=== PATIENT | female | born 1955 | race Caucasian/White ===

== ENCOUNTER 2021-06-14 11:35 | Day surgery (SDC) | payer MEDICARE, MEDICAID ==
[2021-06-14] MEDS ORDERED: Xylocaine 1% Vial 30 ML PF IJ ONE (11:36)
[2021-06-14] MEDS ORDERED: Depo-Medrol 40 MG/ML IM ONE (11:36)
[2021-06-14] MEDS ORDERED: Sodium Chloride 0.9% 10 ML FLUSH Syringe IJ ONE (11:36)
[2021-06-14] MEDS ORDERED: Decadron 4 MG INJ IV ONE (11:36)
[2021-06-14] MEDS ORDERED: DIPRIVAN 200 MG/20 ML IV ONE (13:46)
[2021-06-14] MEDS ORDERED: Lactated Ringers 1,000 ML IV ONE (14:38)
--- NOTE | 2021-06-14 15:04 | XRAY ---
11 seconds fluoroscopy time in surgery for injection of the right piriformis.
--- NOTE | 2021-06-14 15:04 | XRAY ---
Indication: Right L4-S1 S1 transforaminal YANELY. Intraoperative fluoroscopy provided for 32 seconds. 3 digital spot image submitted for interpretation demonstrates posterior needle tips projecting over the expected right L4 and L5 nerve roots. Small amount of contrast injected for needle tip placement. Correlate with intraoperative findings/report. Incidental incompletely visualized 2 right SI joint screws.
--- NOTE | 2021-06-14 15:04 | XRAY ---
Indication: Right piriformis muscle injection. Intraoperative fluoroscopy provided for 11 seconds. Single digital spot image submitted for interpretation demonstrates posterior needle tip projecting over the expected right piriformis muscle. Small amount of contrast injected for needle tip placement. Correlate with intraoperative findings/report.
--- NOTE | 2021-06-14 15:14 | XRAY ---
32 seconds fluoroscopy time in surgery for L4-S1 transforaminal YANELY.
== END 2021-06-14 14:15 | disposition home or self-care (01) ==
LOC: SDC-PAIN 11:35
PROVIDERS: ATTEND Psychiatry & Neurology Pain Medicine
DX: M54.16 Radiculopathy, lumbar region (principal); M79.18 Myalgia, other site; I10 Essential (primary) hypertension; J44.9 Chronic obstructive pulmonary disease, unspecified; D64.9 Anemia, unspecified; E11.9 Type 2 diabetes mellitus without complications; I48.91 Unspecified atrial fibrillation; E03.9 Hypothyroidism, unspecified; Z79.01 Long term (current) use of anticoagulants; Z79.899 Other long term (current) drug therapy
CPT/HCPCS: 20552; 64483; 64484; 72020; 72100; 77002; 77003; 82947; J1030; J1100; J2001; J2704; Q9966

== ENCOUNTER 2021-07-12 07:23 | Day surgery (SDC) | payer MEDICARE ==
[2021-07-12] MEDS ORDERED: BUPIVACAINE 0.5% VIAL IJ ONE (07:24)
[2021-07-12] MEDS ORDERED: Depo-Medrol 40 MG/ML IM ONE (07:24)
[2021-07-12] MEDS ORDERED: Lactated Ringers 1,000 ML IV ONE (08:53)
[2021-07-12] MEDS ORDERED: DIPRIVAN 200 MG/20 ML IV ONE (08:55)
--- NOTE | 2021-07-12 10:19 | XRAY ---
Indication: Right SI joint injection. Intraoperative fluoroscopy provided for 10 seconds. 2 digital spot image submitted for interpretation demonstrates posterior needle tip projecting over the inferior right SI joint. Correlate with intraoperative findings/report. Incidental 2 orthopedic screws traverse the right SI joint.
--- NOTE | 2021-07-12 10:31 | XRAY ---
10 seconds fluoroscopy time in surgery for injection of the right SI joint.
== END 2021-07-12 09:24 | disposition home or self-care (01) ==
LOC: SDC-PAIN 07:23
PROVIDERS: ATTEND Psychiatry & Neurology Pain Medicine
DX: M46.1 Sacroiliitis, not elsewhere classified (principal); D64.9 Anemia, unspecified; I48.91 Unspecified atrial fibrillation; E11.9 Type 2 diabetes mellitus without complications; Z79.899 Other long term (current) drug therapy; Z79.01 Long term (current) use of anticoagulants
CPT/HCPCS: 27096; 72020; 77002; 82947; G0260; J1030; J2704

== ENCOUNTER 2021-08-30 07:25 | Day surgery (SDC) | payer MEDICARE ==
[2021-08-30] MEDS ORDERED: BUPIVACAINE 0.5% VIAL IJ ONE (07:26)
[2021-08-30] MEDS ORDERED: Depo-Medrol 40 MG/ML IM ONE (07:26)
[2021-08-30] MEDS ORDERED: Xylocaine 1% Vial 30 ML PF IJ ONE (07:26)
[2021-08-30] MEDS ORDERED: DIPRIVAN 200 MG/20 ML IV ONE (08:41)
--- NOTE | 2021-08-30 10:02 | XRAY ---
Indication: Right SI joint RFA. Intraoperative fluoroscopy provided for 46 seconds. 2 digital spot image submitted for interpretation demonstrates 4 posterior needle tip projecting over the right sacrum. Correlate with intraoperative findings/report. Incidental partially visualized 2 right SI fixation screws.
[2021-08-30] MEDS ORDERED: Lactated Ringers 1,000 ML IV ONE (10:14)
--- NOTE | 2021-08-30 10:30 | XRAY ---
46 seconds of fluoroscopy was used in surgery for a right SI joint RFA.
== END 2021-08-30 09:20 | disposition home or self-care (01) ==
LOC: SDC-PAIN 07:25
PROVIDERS: ATTEND Psychiatry & Neurology Pain Medicine
DX: M47.816 Spondylosis without myelopathy or radiculopathy, lumbar region (principal); I10 Essential (primary) hypertension; E11.9 Type 2 diabetes mellitus without complications; Z79.01 Long term (current) use of anticoagulants; E03.9 Hypothyroidism, unspecified; Z79.899 Other long term (current) drug therapy
CPT/HCPCS: 64625; 72202; 77002; 82947; J1030; J2001; J2704

== ENCOUNTER 2021-10-18 09:02 | Day surgery (SDC) | payer MEDICARE ==
[2021-10-18] MEDS ORDERED: Depo-Medrol 40 MG/ML IM ONE (09:03)
[2021-10-18] MEDS ORDERED: Sodium Chloride 0.9(Preservative Free) 10 ML IJ ONE (09:03)
[2021-10-18] MEDS ORDERED: Decadron 4 MG INJ IV ONE (09:03)
[2021-10-18] MEDS ORDERED: Xylocaine 1% Vial 30 ML PF IJ ONE (09:03)
[2021-10-18] MEDS ORDERED: DIPRIVAN 200 MG/20 ML IV ONE (11:44)
[2021-10-18] MEDS ORDERED: Lactated Ringers 1,000 ML IV ONE (12:45)
--- NOTE | 2021-10-18 12:53 | XRAY ---
Indication: Right L4-S1 transforaminal YANELY. Intraoperative fluoroscopy provided for 1 minute 20 seconds. 7 digital spot image submitted for interpretation demonstrates posterior needle tips projecting over the expected right L4 and L5 nerve roots. Small amount of contrast injected for needle tip placement. Correlate with intraoperative findings/report. Incidental incompletely visualized 2 right SI joint screws.
--- NOTE | 2021-10-18 12:55 | XRAY ---
Indication: Right piriformis muscle injection. Intraoperative fluoroscopy provided for 11 seconds. 2 digital spot image submitted for interpretation demonstrates posterior needle tip projecting over the expected right piriformis muscle. Small amount of contrast injected for needle tip placement. Correlate with intraoperative findings/report. Incidental 2 orthopedic screws traverse right SI joint.
--- NOTE | 2021-10-18 13:14 | XRAY ---
11 seconds of fluoroscopy was used in surgery for a right piriformis injection.
--- NOTE | 2021-10-18 13:14 | XRAY ---
1 minute 20 seconds of fluoroscopy was used in surgery for a right L4-S1 transforaminal YANELY.
== END 2021-10-18 12:22 | disposition home or self-care (01) ==
LOC: SDC-PAIN 09:02
PROVIDERS: ATTEND Psychiatry & Neurology Pain Medicine
DX: M54.16 Radiculopathy, lumbar region (principal); M79.18 Myalgia, other site; E11.9 Type 2 diabetes mellitus without complications; Z79.899 Other long term (current) drug therapy
CPT/HCPCS: 20552; 64483; 64484; 72020; 72100; 77002; 77003; 82947; J1030; J1100; J2001; J2704; Q9966

== ENCOUNTER 2022-02-07 08:02 | Day surgery (SDC) | payer MEDICARE ==
[2022-02-07] MEDS ORDERED: Depo-Medrol 40 MG/ML IM ONE (08:03)
[2022-02-07] MEDS ORDERED: Decadron 4 MG INJ IV ONE (08:03)
[2022-02-07] MEDS ORDERED: Sodium Chloride 0.9(Preservative Free) 10 ML IJ ONE (08:03)
[2022-02-07] MEDS ORDERED: XYLOCAINE-MPF 1% 5ML SDV IJ ONE (08:03)
[2022-02-07] MEDS ORDERED: DIPRIVAN 200 MG/20 ML IV ONE (10:03)
[2022-02-07] MEDS ORDERED: Lactated Ringers 1,000 ML IV ONE (10:17)
--- NOTE | 2022-02-07 10:53 | XRAY ---
Indication: Right L4-S1 transforaminal YANELY and right piriformis injection. Intraoperative fluoroscopy provided for 43 seconds. 5 digital spot image submitted for interpretation demonstrates posterior needle tips projecting over the expected right L4 and L5 nerve roots with small amount of contrast injected for needle placement. Additional needle tip projects over the right piriformis muscle with small amount of contrast injected for needle tube placement. Correlate with intraoperative findings/report. Incidental 2 right SI joint screws.
--- NOTE | 2022-02-07 11:36 | XRAY ---
43 seconds fluoroscopy time in surgery for right transforaminal YANELY and right piriformis muscle.
== END 2022-02-07 09:50 | disposition home or self-care (01) ==
LOC: SDC-PAIN 08:02
PROVIDERS: ATTEND Psychiatry & Neurology Pain Medicine
DX: M54.16 Radiculopathy, lumbar region (principal); M79.18 Myalgia, other site; E11.9 Type 2 diabetes mellitus without complications; Z79.899 Other long term (current) drug therapy
CPT/HCPCS: 20552; 64483; 64484; 72100; 77002; 77003; 82947; J1030; J1100; J2704; Q9966

== ENCOUNTER 2022-03-07 09:13 | Day surgery (SDC) | payer MEDICARE ==
[2022-03-07] MEDS ORDERED: Depo-Medrol 40 MG/ML IM ONE (09:14)
[2022-03-07] MEDS ORDERED: Marcaine Mpf 0.5% Vial 30 Ml IJ ONE (09:14)
[2022-03-07] MEDS ORDERED: DIPRIVAN 200 MG/20 ML IV ONE (10:44)
[2022-03-07] MEDS ORDERED: MORPHINE SULFATE 2 MG INJ ONE (10:57)
--- NOTE | 2022-03-07 12:00 | XRAY ---
15 seconds fluoroscopy time in surgery for injection of the greater trochanter of the right hip.
--- NOTE | 2022-03-07 12:01 | XRAY ---
11 seconds fluoroscopy time in surgery for intra-articular injection of the right shoulder.
--- NOTE | 2022-03-07 12:08 | XRAY ---
Indication: Right hip injection. Intraoperative fluoroscopy provided for 15 seconds. Single digital spot image submitted for interpretation demonstrate needle tip lateral to the right greater trochanter. Small amount of contrast injected for needle tip placement. Correlate with intraoperative findings/report.
--- NOTE | 2022-03-07 12:08 | XRAY ---
Indication: Right shoulder injection. Intraoperative fluoroscopy provided for 11 seconds. Single digital spot image submitted for interpretation demonstrate needle tip projecting over the right glenohumeral joint superiorly. Small amount of contrast injected for needle tip placement. Correlate with intraoperative findings/report.
[2022-03-07] MEDS ORDERED: Lactated Ringers 1,000 ML IV ONE (12:25)
== END 2022-03-07 11:08 | disposition home or self-care (01) ==
LOC: SDC-PAIN 09:13
PROVIDERS: ATTEND Psychiatry & Neurology Pain Medicine
DX: M19.011 Primary osteoarthritis, right shoulder (principal); M70.61 Trochanteric bursitis, right hip; E11.9 Type 2 diabetes mellitus without complications; Z79.899 Other long term (current) drug therapy
CPT/HCPCS: 20610; 73030; 73501; 77002; 82947; J1030; J2270; J2704; Q9966